=== PATIENT | female | born 1950 | race Two or more races ===

== ENCOUNTER 2024-03-04 11:42 | Observation (INO) | payer BC ==
[2024-03-04] MEDS ORDERED: MORPHINE SULFATE 2 MG/ML SYRINGE ONE (12:24)
[2024-03-04] MEDS: morphine CARPU-JECT 2 MG/1 ML DISP.SYRIN IVPUSH ONE (12:25)
[2024-03-04 12:47] LABS: BASO % 0.7 % (0-2.0); EOS % 1.4 % (0-4.5); HEMATOCRIT 43.5 % (32.4-45.2); HEMOGLOBIN 14.1 GM/dL (10.7-15.3); LYMPH % 23.2 % (8-40); MCH 28.9 pg (25.7-33.7); MCHC 32.5 g/dl (32.0-36.0); MEAN CELL VOLUME 88.7 fl (80-96); MEAN PLT VOLUME 8.5 fl (7.5-11.1); MONO % 5.9 % (3.8-10.2); NEUT % 68.8 % (42.8-82.8); PLATELET COUNT 242 10^3/uL (134-434); WHITE BLOOD COUNT 8.1 K/mm3 (4.0-10.0)
[2024-03-04 13:01] LABS: INR 1.01 (0.83-1.09); PROTHROMBIN TIME (PATIENT) 11.4 SEC (9.7-13.0)
[2024-03-04 13:04] LABS: ACTIVATED PTT 31.7 SECONDS (25.2-36.5)
[2024-03-04 13:08] LABS: POTASSIUM 3.7 mmol/L (3.5-5.1)
[2024-03-04 13:10] LABS: CALCIUM 10.7 mg/dL (8.5-10.1)
[2024-03-04 13:11] LABS: ALBUMIN 4.2 g/dl (3.4-5.0); BLOOD UREA NITROGEN 12.2 mg/dL (7-18)
[2024-03-04 13:14] LABS: CREATININE 0.5 mg/dL (0.55-1.3)
[2024-03-04 13:15] LABS: BILIRUBIN,TOTAL 0.5 mg/dL (0.2-1); TOT PROT 8.6 g/dl (6.4-8.2)
[2024-03-04] MEDS ORDERED: ONDANSETRON 4 MG/2 ML VIAL ONE (16:19)
[2024-03-04] MEDS: ONDANSETRON 4 MG/2 ML VIAL IVPUSH ONE (16:21)
[2024-03-04] MEDS: SODIUM CHLORIDE 0.9% 500 ML INFUS.BAG IV ONE (16:41)
[2024-03-04] MEDS ORDERED: amLODIPine BESYLATE 10 MG TABLET (FP) ONE (18:11)
[2024-03-04] MEDS: amLODIPine BESYLATE 10 MG TABLET (FP) PO SCH (18:22)
[2024-03-05 02:12] VITALS: RESP 18; BMI 25.4
[2024-03-05] MEDS: oxyCODONE HCL 5 MG TABLET PO PRN (06:31)
[2024-03-05] MEDS: ACETAMINOPHEN 325 MG TABLET (FP) PO PRN (06:32)
[2024-03-05] MEDS: IBUPROFEN 600 MG TABLET (FP) PO PRN (09:21)
[2024-03-05] MEDS: ENOXAPARIN NA (PORCINE) 40 MG/0.4 ML DISP.SYRIN SQ SCH (09:22)
[2024-03-05 12:59] LABS: EOS % 1.2 % (0-4.5); HEMATOCRIT 39.9 % (32.4-45.2); LYMPH % 23.4 % (8-40); MCH 28.9 pg (25.7-33.7); MCHC 32.6 g/dl (32.0-36.0); MEAN CELL VOLUME 88.7 fl (80-96); MONO % 8.4 % (3.8-10.2); NEUT % 66.3 % (42.8-82.8); PLATELET COUNT 287 10^3/uL (134-434); RDW 13.9 % (11.6-15.6); WHITE BLOOD COUNT 10.2 K/mm3 (4.0-10.0)
[2024-03-05 13:00] LABS: BASO % 0.7 % (0-2.0)
[2024-03-05 13:25] LABS: POTASSIUM 3.9 mmol/L (3.5-5.1)
[2024-03-05 13:27] LABS: BLOOD UREA NITROGEN 11.6 mg/dL (7-18); CALCIUM 10.1 mg/dL (8.5-10.1)
[2024-03-05 13:28] LABS: ALBUMIN 3.6 g/dl (3.4-5.0)
[2024-03-05 13:31] LABS: CREATININE 0.6 mg/dL (0.55-1.3)
[2024-03-05 13:32] LABS: BILIRUBIN,TOTAL 0.7 mg/dL (0.2-1); TOT PROT 7.4 g/dl (6.4-8.2)
[2024-03-05 14:42] VITALS: BP 111/60; PULSE 66; TEMP 97.9
== END 2024-03-05 18:10 | disposition home or self-care (01) ==
LOC: JER 11:42 → JERBED 17:40 → J6S 03-05 01:18
PROVIDERS: ADMIT Internal Medicine; ATTEND Internal Medicine
PROC: 3E0337Z Introduction of Electrolytic and Water Balance Substance into Peripheral Vein, Percutaneous Approach (ICD-10-PCS; principal; 2024-03-04)
DX: S42.255A Nondisplaced fracture of greater tuberosity of left humerus, initial encounter for closed fracture (principal); W18.39XA Other fall on same level, initial encounter; Y93.89 Activity, other specified; Y92.89 Other specified places as the place of occurrence of the external cause; I10 Essential (primary) hypertension
CPT/HCPCS: 36415; 70450-TC; 73030-TC-LT-FY; 73060-TC-LT-FY; 73070-TC-LT-FY; 73110-TC-LT-FY; 73130-TC-LT-FY; 80053; 82962; 84484; 85025; 85610; 85730; 86850; 86900; 86901; 93005; 93010; 93970-TC; 96372; 96374; 97116-GP; 97161-GP; 99285-25; G0378